=== PATIENT | male | born 1945 | race Caucasian/White ===

== ENCOUNTER 2020-07-11 13:45 | Emergency (ER) | payer OTHER ==
[~2020-07-11] VITALS: Ht 172.7 cm; Wt 113.4 kg
[2020-07-11 14:18] LABS: ABSOLUTE LYMPHOCYTES 2.3 thou/uL (0.8-5.3); ABSOLUTE MONOCYTES 0.9 thou/uL (0.0-1.2); ABSOLUTE NEUTROPHILS 4.4 thou/uL (1.6-8.1); BASOPHILS 0.5 %; EOSINOPHILS 0.2 %; HEMOGLOBIN 8.9 gm/dL (14.0-18.0); LYMPHOCYTES 29.3 %; MCH 30.2 pg (26.0-34.0); MCV 94.4 fL (80.0-100.0); MONOCYTES 12.3 %; MPV 7.3 fl. (7.2-11.1); NUCLEATED RBCS 0 /100WBC; PLATELET COUNT* 283 thou/uL (150-400); POLYS 57.7 %; RBC 2.96 mil/uL (4.50-6.00); WBC 7.7 thou/uL (4.0-11.0)
[2020-07-11 14:26] LABS: CALCIUM 8.5 mg/dL (8.5-10.1); CREATININE 1.8 mg/dL (0.6-1.3); POTASSIUM 4.4 mmol/L (3.5-5.1)
[2020-07-11 14:28] LABS: INR 1.1; PROTIME 11.7 Seconds (9.20-11.50)
[2020-07-11 14:41] LABS: ALBUMIN 2.2 g/dL (3.4-5.0); TOTAL BILIRUBIN 0.4 mg/dL (<0.1-1.0); TOTAL PROTEIN 7.4 g/dL (6.4-8.2)
[2020-07-11] MEDS ORDERED: NEURONTIN 400M400 M2 PO (14:47)
[2020-07-11] MEDS ORDERED: SUPER THERAVIT1 EACH PO (14:48)
[2020-07-11] MEDS ORDERED: METFORMIN HCL500 M3 PO (14:49)
[2020-07-11] MEDS ORDERED: BUPROPION XL300 MG PO (14:49)
[2020-07-11] MEDS ORDERED: SIMVASTATIN80 MG PO (14:50)
[2020-07-11] MEDS ORDERED: CALCIUM CARBON500 MG PO (14:52)
[2020-07-11] MEDS ORDERED: D3 DOTS50 MCG PO (14:53)
[2020-07-11] MEDS ORDERED: FLOMAX0.4 MG PO (14:54)
[2020-07-11] MEDS ORDERED: VITAMIN C250 MG PO (14:55)
[2020-07-11] MEDS ORDERED: BUSPIRONE HCL10 MG PO (14:55)
[2020-07-11] MEDS ORDERED: MELATONIN3 M1 PO (14:55)
[2020-07-11] MEDS ORDERED: VITAMIN B-121000 MC2 PO (14:56)
[2020-07-11] MEDS ORDERED: OXYBUTYNIN 5 MG5 M2 PO (14:56)
[2020-07-11] MEDS ORDERED: SLOW FE142 MG PO (14:57)
[2020-07-11] MEDS ORDERED: DULOXETINE HCL60 MG PO (14:58)
[2020-07-11] MEDS ORDERED: ASPIRIN EC81 M1 PO (14:58)
[2020-07-11] MEDS ORDERED: ACETAMINOPHEN500 MG PO (14:59)
[2020-07-11 15:29] LABS: URINE BILIRUBIN NEGATIVE (Negative); URINE BLOOD 2+ (Negative); URINE CLARITY TURBID; URINE COLOR YELLOW; URINE GLUCOSE-RANDOM NEGATIVE (Negative); URINE KETONES NEGATIVE (Negative); URINE LEUKOCYTES-REFLEX 3+ (Negative); URINE NITRITE-REFLEX POSITIVE (Negative); URINE PROTEIN 2+ (Negative); URINE UROBILINOGEN 0.2 E.U./dl (0.2-1.0)
[2020-07-11 15:38] LABS: BACTERIA-REFLEX >30 Many /HPF (None Seen); CASTS None Seen /LPF (None Seen); CRYSTALS None Seen /LPF (None Seen); SQUAMOUS 0-3 Few /LPF (0-3); URINE WBC-REFLEX >25 Many /HPF (0-5); WBC CLUMPS Many (None Seen)
[2020-07-11] MEDS ORDERED: LEVOFLOXACIN750 MG PO (16:25)
[2020-07-11 17:10] VITALS: BP 148/98
--- NOTE | 2020-07-11 17:24 | EKG ---
[place] [address] ELECTROCARDIOGRAM REPORT Name: MELVI MATA Room: [facility]#: [id number] Admission: 07/11/20 Attend Phys: Discharge: Date of : 45 Date of Service: 07/11/20 1432 Report #: [id number] THIS REPORT FOR: //name// [facility] ED Test Date: 2020-07-11 Test Time: 14:32:47 Pat Name: MELVI MATA Department: Room: Gender: Valet Attendant: EZEQUIEL : 1945 Requested By: Jeb Gerardo Order Number: [id number] MD: Dany Siddiqui Measurements Intervals [place] Rate: 94 P: 63 NE: 141 QRS: 33 QRSD: 98 T: 52 QT: 437 QTc: 547 Interpretive Statements Sinus rhythm Low voltage, extremity and precordial leads Probable anteroseptal infarct, old Prolonged QT interval No previous ECG available for comparison Electronically Signed On 07-11-2020 17:24:50 PRODUCT DESIGN ENGINEER by Dany Siddiqui [email or web address] <ELECTRONICALLY SIGNED> By: Dany Siddiqui MD, FACC 07/11/20 1724 1432 1432 Dany Siddiqui MD, [facility] /EPI
== END 2020-07-11 17:10 | disposition home or self-care (01) ==
LOC: M.ERS 13:45
PROVIDERS: Family Medicine
DX: N39.0 Urinary tract infection, site not specified (principal); E11.9 Type 2 diabetes mellitus without complications; E78.5 Hyperlipidemia, unspecified; E66.01 Morbid (severe) obesity due to excess calories; Z68.38 Body mass index [BMI] 38.0-38.9, adult